=== PATIENT | female | born 2005 | race Caucasian/White ===

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

== ENCOUNTER 2024-03-04 17:19 | Emergency (ER) | payer MEDICAID ==
[~2024-03-04] VITALS: Ht 160 cm; Wt 40.0 kg
[2024-03-04] MEDS ORDERED: FAMO20TA8 PO (17:37)
[2024-03-04 17:53] LABS: BASOPHILS % (AUTO) 0.3 % (0-1); EOSINOPHILS % (AUTO) 0.3 % (0-6); HEMATOCRIT 43.2 % (35.0-45.0); HEMOGLOBIN 14.8 g/dl (12.0-16.0); LYMPHOCYTES # (AUTO) 1.7 X10'3 (1.1-4.8); LYMPHOCYTES % (AUTO) 11.3 % (21-51); MEAN CORPUSCULAR HEMOGLOBIN 30.3 PG (27.0-31.0); MEAN CORPUSCULAR HGB CONC 34.1 g/dL (33.0-36.5); MEAN CORPUSCULAR VOLUME 88.9 FL (78-98); MONOCYTES # (AUTO) 0.9 X10'3 (0-0.9); MONOCYTES % (AUTO) 6.3 % (2-12); NEUTROPHILS # (AUTO) 12.3 X10'3 (1.8-7.7); NEUTROPHILS % (AUTO) 81.8 % (42-75); PLATELET COUNT 324 X10'3 (140-440); RED BLOOD COUNT 4.86 X10'6 (4.20-5.60); RED CELL DISTRIBUTION WIDTH 14.1 % (11.5-14.5)
[2024-03-04 18:17] LABS: ANION GAP 7 (8-16); BLOOD UREA NITROGEN 18 MG/DL (7-18); CALCIUM 9.3 MG/DL (8.5-10.1); CHLORIDE 101 MMOL/L (99-107); CREATININE 0.82 MG/DL (0.40-0.90); GLUCOSE 96 MG/DL (70-104); POTASSIUM 4.4 MMOL/L (3.5-5.1); SODIUM 139 MMOL/L (135-145); THYROID STIMULATING HORMONE 0.79 ulU/ml (0.34-4.50); TOTAL CARBON DIOXIDE 30.6 MMOL/L (24-32); eCRCL 70 ML/MIN; eGFR 90 ML/MIN
[2024-03-04 18:19] LABS: ETHANOL < 10 MG/DL (<10)
[2024-03-04 18:27] LABS: URINE HCG NEGATIVE (NEG)
[2024-03-04 18:32] LABS: BILIRUBIN,URINE NEGATIVE (Neg); CLARITY,URINE CLOUDY (Clear); COLOR,URINE YELLOW (Yellow); GLUCOSE, URINE NEGATIVE (Neg); KETONES,URINE NEGATIVE (Neg); LEUKOCYTE ESTERASE ,URINE SMALL (Neg); NITRITES, URINE NEGATIVE (Neg); OCCULT BLOOD,URINE LARGE (Neg); PH,URINE 8.5 (4.8-8.0); PROTEIN,URINE TRACE mg/dl (Neg); UROBILINOGEN,URINE 0.2 E.U/dL (0.2-1.0)
[2024-03-04 18:34] LABS: URINE AMPHETAMINE SCREEN NEGATIVE (Neg); URINE BARBITUATE SCREEN NEGATIVE (Neg); URINE BENZODIAZEPINES SCREEN NEGATIVE (Neg); URINE CANNABINOID SCREEN POSITIVE (Neg); URINE COCAINE SCREEN NEGATIVE (Neg); URINE METHADONE SCREEN NEGATIVE (Neg); URINE OPIATE SCREEN NEGATIVE (Neg); URINE PHENCYCLIDINE SCREEN NEGATIVE (Neg)
[2024-03-04 18:35] LABS: UA COLLECTION TYPE CLN CATCH MIDSTREAM
[2024-03-04 18:42] LABS: SQUAMOUS EPITHELIAL CELL,UR MANY /LPF (FEW)
[2024-03-04 18:43] LABS: AMORPHOUS PHOSPHATES 4+; MUCUS STRANDS NONE SEEN /LPF (Neg)
[2024-03-04 18:44] LABS: BACTERIA,URINE 2+ /HPF (Neg); WBC,URINE 0-4 /HPF (0-4)
[2024-03-04] MEDS: famotidine 20mg tablet PO SCH (20:48)
[2024-03-04] MEDS ORDERED: QUEtiapine 25mg tablet PO SCH (21:35)
[2024-03-04] MEDS: QUEtiapine 25mg tablet PO ONE (21:41)
[2024-03-04] MEDS: diphenhydrAMINE 25mg capsule PO ONE (22:47)
[2024-03-05 10:58] VITALS: BP 122/74; PULSE 72; RESP 16; TEMP 98; O2SAT 98
[2024-03-05] MEDS ORDERED: Melatonin 3mg tablet PO ONE (21:00)
[2024-03-05] MEDS ORDERED: QUEtiapine 25mg tablet PO SCH (21:00)
== END 2024-03-05 10:40 | disposition home or self-care (01) ==
LOC: ER 17:20
DX: R45.851 Suicidal ideations (principal); F32.A Depression, unspecified; Z79.899 Other long term (current) drug therapy; Z20.822 Contact with and (suspected) exposure to COVID-19
CPT/HCPCS: 36415; 80048; 80305; 80320; 81001; 81025; 84443; 85025; 87811; 99284; Q0163

== ENCOUNTER 2024-07-07 13:07 | Emergency (ER) | payer MEDICAID ==
[~2024-07-07] VITALS: Ht 154.9 cm; Wt 49.5 kg
[~2024-07-07 13:07] MED LIST changes: +FAMO20TA8 PO
[2024-07-07] MEDS: HYDROcodone/acetaminophen 10/325mg tab PO ONE (14:13)
[2024-07-07] MEDS: LIDOcaine 1% 30ml preserv. free vial SQ STA (15:06)
[2024-07-07] MEDS ORDERED: DICL20GE TP (15:25)
[2024-07-07 15:41] VITALS: BP 108/64; PULSE 70; RESP 15; TEMP 97.9; O2SAT 99
== END 2024-07-07 15:42 | disposition home or self-care (01) ==
LOC: ER 13:08
DX: S52.691A Other fracture of lower end of right ulna, initial encounter for closed fracture (principal); M25.531 Pain in right wrist; F17.200 Nicotine dependence, unspecified, uncomplicated; Z79.899 Other long term (current) drug therapy; W20.8XXA Other cause of strike by thrown, projected or falling object, initial encounter; Y93.89 Activity, other specified; Y92.89 Other specified places as the place of occurrence of the external cause; Y99.8 Other external cause status
CPT/HCPCS: 25605; 73110; 73200; 99284